=== PATIENT | female | born 1985 | race Caucasian/White ===

== ENCOUNTER 2016-08-23 22:00 | Emergency (ER) | payer MEDICAID ==
[~2016-08-23] VITALS: Ht 167.6 cm; Wt 69.4 kg
--- NOTE | 2016-08-23 22:38 | NUR ---
PT TAKEN TO BED 4
--- NOTE | 2016-08-23 22:45 | NUR ---
PATIENT PRESENTS TO ED WITH LOWER ABD PAIN RADIATING TO HER BACK FOR 3 DAYS, WITH N/V ALL DAY . AND VAG BLEEDING, 6 WEEKS, LMP JULY 09. PT WENT FOR TERMINATION OF YESTERDAY. PT SKIN IS PINK/WARM/DRY; AAOX4 WITH EVEN AND STEADY GAIT; LUNGS CLEAR BL; HR EVEN AND REGULAR; PT DENIES ANY FEVER, CP, SOB, OR COUGH AT THIS TIME; PATIENT STATES PAIN OF 8/10 AT THIS TIME; VSS; PATIENT POSITIONED FOR COMFORT; HOB ELEVATED; BEDRAILS UP X2; BED DOWN. ER MD MADE AWARE OF PT STATUS.
--- NOTE | 2016-08-23 22:50 | NUR ---
Dr. Rubio evaluating patient at bedside.
--- NOTE | 2016-08-23 22:52 | NUR ---
PT TAKEN TO ULTRASOUND
[2016-08-23 22:58] LABS: BASOPHILS # (AUTO) 0.1 K/uL (0.00-0.22); BASOPHILS % (AUTO) 1.1 % (0.0-2.0); EOSINOPHILS # (AUTO) 0.1 K/uL (0-0.4); EOSINOPHILS % (AUTO) 1.2 % (0.0-4.0); HEMATOCRIT 38.8 % (36-48); HEMOGLOBIN 13.2 g/dL (12.0-16.0); LYMPHOCYTES # (AUTO) 1.1 K/uL (2.5-16.5); LYMPHOCYTES % (AUTO) 8.8 % (20.5-51.1); MEAN CORPUSCULAR HEMOGLOBIN 29 pg (27-31); MEAN CORPUSCULAR HGB CONC 34 g/dL (33-37); MEAN CORPUSCULAR VOLUME 86 fL (80-94); MONOCYTES # (AUTO) 0.5 K/uL (0.8-1.0); NEUTROPHILS # (AUTO) 10.7 K/uL (1.8-7.7); NEUTROPHILS % (AUTO) 84.9 % (42.2-75.2); PLATELET COUNT (AUTO) 217 K/uL (140-450); RED BLOOD CELL COUNT(AUTO) 4.53 MIL/uL (4.20-5.40); RED CELL DISTRIBUTION WIDTH 11.7 % (11.6-13.7); WHITE BLOOD COUNT (AUTO) 12.5 K/uL (4.8-10.8)
[2016-08-23 23:03] LABS: BILIRUBIN,URINE 1+ (NEGATIVE); BLOOD, URINE 3+ (NEGATIVE); COLOR,URINE YELLOW (YELLOW); LEUKOCYTE ESTERASE ,URINE NEGATIVE (NEGATIVE); NITRITE, URINE NEGATIVE (NEGATIVE); PH,URINE 5.5 (5.0-9.0); PROTEIN,URINE 1+ (NEGATIVE); UGLUCOSE NEGATIVE (NEGATIVE)
[2016-08-23 23:08] LABS: APPEARANCE,URINE CLOUDY (CLEAR)
[2016-08-23 23:14] LABS: ANION GAP 16.7 (8-16); CALCIUM 9.1 mg/dL (8.5-10.1); CARBON DIOXIDE 24.9 mmol/L (21-32); CREATININE 0.7 mg/dL (0.6-1.3); POTASSIUM 3.6 mmol/L (3.5-5.1)
[2016-08-23 23:18] LABS: ALBUMIN 4.1 g/dL (3.4-5.0); TOTAL BILIRUBIN 0.5 mg/dL (0.0-1.0); TOTAL PROTEIN, SERUM 7.9 g/dL (6.4-8.2)
[2016-08-23 23:20] LABS: BACTERIA,URINE FEW /HPF (None Seen); RBC,URINE TOO NUMEROUS TO COUN /HPF (0-5); SQUAMOUS EPITHELIAL CELL,UR RARE /LPF (0-3 (FEW)); WBC,URINE NONE SEEN /HPF (0-5)
[2016-08-23 23:21] LABS: URINE AMORPHOUS URATE 4+ /HPF (None Seen)
[2016-08-24] MEDS ORDERED: KETOROLAC 60 MG/2 ML VIAL IM ONE (00:10)
[2016-08-24 00:21] VITALS: BP 128/74
== END 2016-08-24 00:21 | disposition home or self-care (01) ==
LOC: MED 22:00
DX: O04.80 (Induced) termination of pregnancy with unspecified complications (principal)
CPT/HCPCS: 36415; 76801; 80053; 81001; 84702; 85025; 86900; 86901; 96372; 99285; J1885

== ENCOUNTER 2016-08-28 21:22 | Day surgery (SDC) | payer MEDICAID ==
[~2016-08-28] VITALS: Ht 165.1 cm; Wt 69.4 kg
[2016-08-28 21:30] VITALS: BP 104/64
--- NOTE | 2016-08-28 22:38 | NUR ---
PT TAKEN TO BED 7
[2016-08-28] MEDS ORDERED: LEVOFLOXACIN 500 MG/D5W PREMIX 100 ML IV ONE (22:40)
--- NOTE | 2016-08-28 23:45 | NUR ---
31Y F BIB SON C/O OF ABD PAIN. NO DISTRESS, PAIN IS 8/10 IN SCALE.
--- NOTE | 2016-08-28 23:49 | NUR ---
Dr. Rubio evaluating patient at bedside.
[2016-08-28] MEDS ORDERED: metroNIDAZOLE 500 MG/NS PREMIX 100 ML IV ONE (23:55)
--- NOTE | 2016-08-29 00:48 | NUR ---
PT RETURN FROM ULTRASOUND
--- NOTE | 2016-08-29 02:03 | NUR ---
Patient will be admitted to care of DR Familia FRANKS. Admited to [facility]. Will go to room 104B. Belongings list completed. Report to [facility].
[2016-08-29 02:08] VITALS: BP 99/56
--- NOTE | 2016-08-29 02:08 | NUR ---
ADMITTED PT FROM ER AWAKE,ALERT AND ORIENTED X4,SPEAKS TURKISH. NO C/O RESPIRATORY DISTRESS. NO FEVER AT THIS TIME. ORIENTED TO SURROUNDINGS, CALL LIGTH WITHIN REACH. IV TO LEFT AC PATENT AND INTACT. INSTRUCTED NOT TO EAT OR DRINK DOCTOR MAY DO THE SURGERY TODAY.
--- NOTE | 2016-08-29 02:10 | NUR ---
PT STATED MILD HAS PAIN TO LOWER ABDOMEN BUT DOES NEED PAIN MED AT THIS TIME, WILL LET NURSE KNOW LATER IF SHE NEEDS IT.
[2016-08-29 04:00] VITALS: BP 94/58
--- NOTE | 2016-08-29 04:00 | NUR ---
TEMPERATURE 99.5 TEMPORAL,NO COMPLAINTS.REINFOCED NPO STATUS.
[2016-08-29 07:12] LABS: BASOPHILS # (AUTO) 0.1 K/uL (0.00-0.22); BASOPHILS % (AUTO) 1.2 % (0.0-2.0); EOSINOPHILS # (AUTO) 0.3 K/uL (0-0.4); EOSINOPHILS % (AUTO) 2.2 % (0.0-4.0); HEMATOCRIT 33.1 % (36-48); HEMOGLOBIN 11.1 g/dL (12.0-16.0); LYMPHOCYTES # (AUTO) 1.2 K/uL (2.5-16.5); LYMPHOCYTES % (AUTO) 10.1 % (20.5-51.1); MEAN CORPUSCULAR HEMOGLOBIN 29 pg (27-31); MEAN CORPUSCULAR HGB CONC 34 g/dL (33-37); MEAN CORPUSCULAR VOLUME 86 fL (80-94); MONOCYTES # (AUTO) 1.5 K/uL (0.8-1.0); MONOCYTES % (AUTO) 12.5 % (1.7-9.3); NEUTROPHILS # (AUTO) 9.1 K/uL (1.8-7.7); PLATELET COUNT (AUTO) 179 K/uL (140-450); RED BLOOD CELL COUNT(AUTO) 3.87 MIL/uL (4.20-5.40); RED CELL DISTRIBUTION WIDTH 11.7 % (11.6-13.7); WHITE BLOOD COUNT (AUTO) 12.2 K/uL (4.8-10.8)
--- NOTE | 2016-08-29 07:15 | NUR ---
DR Familia FRANKS VISITED PATIENT NEW ORDER OK TO DISCHARGE PATIENT AND F/U WITH HIM WITH IN ONE WEEK.
[2016-08-29 08:00] VITALS: BP 121/71
--- NOTE | 2016-08-29 08:00 | NUR ---
RECEIVED REPORT FROM [facility] FOR CONTINUITY OF CARE. PATIENT AWAKE A/OX4 NO S/S OF RESP DISTRESS NOTED ABLE TO MAKE NEEDS KNOWN . AT THE BED SIDE HELPING WITH THE NEEDS . DENIES ANY PAIN .AMBULATE TO BATHROOM STATED VERY MINIMAL BLEEDING. IV SITE RIGHT AC GAUGE 20 INTACT AND PATENT . PLAN OF CARE DISCUSSED WITH THE PATIENT VITALS STABLE WILL CONTINUE TO MONITOR.
--- NOTE | 2016-08-29 10:15 | NUR ---
DISCHARGE INSTRUCTION AND PRESCRIPTION GIVEN VERBALIZED UNDERSTANDING , ALL PAPER WORK SIGNED BY THE PATIENT. D/C PATIENT HOME ACCOMPANY BY HER , STABLE CONDITION UPON DISCHARGE.
[2016-08-29] MEDS ORDERED: CYT100 PO ×2 (10:17→10:24)
[2016-08-29] MEDS ORDERED: AMPI500C49 PO ×2 (10:18→10:24)
== END 2016-08-29 10:15 | disposition home or self-care (01) ==
LOC: MED 21:22 → MTU 08-29 01:38 → MED 08-29 01:38
PROVIDERS: ATTEND Obstetrics & Gynecology
DX: O03.0 Genital tract and pelvic infection following incomplete spontaneous abortion (principal); N76.0 Acute vaginitis
CPT/HCPCS: 36415; 76830; 84702; 85025; 87070; 87081; 87210; J1956; J3490; Q0092

== ENCOUNTER 2018-01-26 12:55 | Emergency (ER) | payer MEDICAID ==
[~2018-01-26] VITALS: Ht 157.5 cm; Wt 67.6 kg
[~2018-01-26 12:55] MED LIST: CYT100 PO
[2018-01-26 13:00] VITALS: BP 103/73
[2018-01-26] MEDS ORDERED: ACETAMINOPHEN EXTRA STRENGTH 500 MG TAB PO ONE (13:15)
[2018-01-26 13:47] LABS: BASOPHILS # (AUTO) 0.1 K/uL (0.00-0.22); BASOPHILS % (AUTO) 0.7 % (0.0-2.0); EOSINOPHILS # (AUTO) 0.1 K/uL (0-0.4); EOSINOPHILS % (AUTO) 1.7 % (0.0-4.0); HEMATOCRIT 35.9 % (36-48); LYMPHOCYTES % (AUTO) 23.2 % (20.5-51.1); MEAN CORPUSCULAR HEMOGLOBIN 29 pg (27-31); MEAN CORPUSCULAR HGB CONC 33 g/dL (33-37); MEAN CORPUSCULAR VOLUME 86.7 fL (80-94); MONOCYTES # (AUTO) 0.8 K/uL (0.8-1.0); MONOCYTES % (AUTO) 8.9 % (1.7-9.3); NEUTROPHILS # (AUTO) 5.7 K/uL (1.8-7.7); NEUTROPHILS % (AUTO) 65.5 % (42.2-75.2); PLATELET COUNT (AUTO) 206 K/uL (140-450); RED BLOOD CELL COUNT(AUTO) 4.15 MIL/uL (4.20-5.40); RED CELL DISTRIBUTION WIDTH 12.9 % (11.6-13.7); WHITE BLOOD COUNT (AUTO) 8.7 K/uL (4.8-10.8)
[2018-01-26 13:51] LABS: APPEARANCE,URINE CLEAR (CLEAR); BILIRUBIN,URINE NEGATIVE (NEGATIVE); BLOOD, URINE SMALL (NEGATIVE); COLOR,URINE YELLOW (YELLOW); LEUKOCYTE ESTERASE ,URINE NEGATIVE (NEGATIVE); NITRITE, URINE NEGATIVE (NEGATIVE); PH,URINE 6.5 (5.0-9.0); UGLUCOSE NEGATIVE (NEGATIVE)
[2018-01-26 14:06] LABS: RBC,URINE 0-5 (RARE) /HPF (0-5); WBC,URINE 0-5 (RARE) /HPF (0-5)
[2018-01-26] MEDS ORDERED: cefTRIAXone 1,000 MG in LIDOCAINE MPF 1% - 5 mL VIAL 2.1 ML IM ONE (16:10)
[2018-01-26 16:45] VITALS: BP 128/75
== END 2018-01-26 16:45 | disposition home or self-care (01) ==
LOC: MED 12:55
DX: O20.0 Threatened abortion (principal); O98.811 Other maternal infectious and parasitic diseases complicating pregnancy, first trimester; R82.71 Bacteriuria; Z3A.08 8 weeks gestation of pregnancy; Z79.899 Other long term (current) drug therapy
CPT/HCPCS: 36415; 76817; 81001; 81025; 84702; 85025; 86900; 86901; 96372; 99284; J0696; J2001; Q0092; 81002

== ENCOUNTER 2018-08-23 13:36 | Emergency (ER) | payer MEDICAID ==
[~2018-08-23] VITALS: Ht 162.6 cm; Wt 70.8 kg
[2018-08-23 14:00] VITALS: BP 113/61
--- NOTE | 2018-08-23 14:06 | NUR ---
VSS. WAIT IN LOBBY
--- NOTE | 2018-08-23 14:45 | NUR ---
pt ambulated to er bed 02
--- NOTE | 2018-08-23 14:56 | NUR ---
C/O RIGHT LOWER ABDOMINAL PAIN & VAGINAL BLEEDING X 2 WEEKS MED HX:DENIES
[2018-08-23] MEDS ORDERED: NACL 0.9% 1,000 ML IV ONE (15:50)
[2018-08-23 16:13] LABS: BASOPHILS # (AUTO) 0.1 K/uL (0.00-0.22); EOSINOPHILS # (AUTO) 0.2 K/uL (0-0.4); EOSINOPHILS % (AUTO) 2.7 % (0.0-4.0); HEMATOCRIT 37.3 % (36-48); HEMOGLOBIN 12.4 g/dL (12.0-16.0); LYMPHOCYTES # (AUTO) 2.5 K/uL (2.5-16.5); LYMPHOCYTES % (AUTO) 36.9 % (20.5-51.1); MEAN CORPUSCULAR HEMOGLOBIN 29 pg (27-31); MEAN CORPUSCULAR HGB CONC 33 g/dL (33-37); MONOCYTES # (AUTO) 0.6 K/uL (0.8-1.0); MONOCYTES % (AUTO) 8.4 % (1.7-9.3); NEUTROPHILS # (AUTO) 3.4 K/uL (1.8-7.7); PLATELET COUNT (AUTO) 233 K/uL (140-450); RED BLOOD CELL COUNT(AUTO) 4.23 MIL/uL (4.20-5.40); RED CELL DISTRIBUTION WIDTH 12.7 % (11.6-13.7); WHITE BLOOD COUNT (AUTO) 6.7 K/uL (4.8-10.8)
[2018-08-23 16:32] LABS: PROTHROMBIN TIME 9.7 secs (10.8-13.4)
[2018-08-23 18:55] VITALS: BP 110/82
== END 2018-08-23 18:56 | disposition home or self-care (01) ==
LOC: MED 13:36
DX: N93.8 Other specified abnormal uterine and vaginal bleeding (principal); R42 Dizziness and giddiness; Z79.899 Other long term (current) drug therapy
CPT/HCPCS: 36415; 76830; 81002; 81025; 85025; 85610; 85730; 86900; 86901; 96360; 99284; J7030; Q0092

== ENCOUNTER 2021-11-18 22:04 | Emergency (ER) | payer MEDICAID ==
[~2021-11-18] VITALS: Ht 167.6 cm; Wt 70.3 kg
[2021-11-18 23:11] VITALS: BP 124/77
--- NOTE | 2021-11-18 23:18 | NUR ---
TO LOBBY FOLLOWING TRIAGE
--- NOTE | 2021-11-19 02:43 | NUR ---
PT TO BED #1
--- NOTE | 2021-11-19 02:45 | NUR ---
Received pt AAOx4, CC- Bleeding x2 weeks. Pt is by each time, on control Deprovera- Desires not to have anymore children. Seen by
[2021-11-19] MEDS ORDERED: ACETAMINOPHEN EXTRA STRENGTH 500 MG TAB PO ONE (03:00)
[2021-11-19] MEDS ORDERED: IBUPROFEN 600 MG TAB PO ONE (03:00)
[2021-11-19 03:12] LABS: BASOPHILS # (AUTO) 0.1 K/uL (0.00-0.22); BASOPHILS % (AUTO) 1.2 % (0.0-2.0); EOSINOPHILS # (AUTO) 0.2 K/uL (0-0.4); EOSINOPHILS % (AUTO) 2.5 % (0.0-4.0); HEMATOCRIT 33.1 % (36-48); LYMPHOCYTES % (AUTO) 37.7 % (20.5-51.1); MEAN CORPUSCULAR HEMOGLOBIN 27 pg (27-31); MEAN CORPUSCULAR HGB CONC 33 g/dL (33-37); MEAN CORPUSCULAR VOLUME 82.2 fL (80-94); MONOCYTES # (AUTO) 0.6 K/uL (0.8-1.0); MONOCYTES % (AUTO) 7.6 % (1.7-9.3); NEUTROPHILS # (AUTO) 4.1 K/uL (1.8-7.7); PLATELET COUNT (AUTO) 228 K/uL (140-450); RED BLOOD CELL COUNT(AUTO) 4.03 MIL/uL (4.20-5.40); RED CELL DISTRIBUTION WIDTH 14.2 % (11.6-13.7); WHITE BLOOD COUNT (AUTO) 7.9 K/uL (4.8-10.8)
--- NOTE | 2021-11-19 03:30 | NUR ---
Abd US done at [facility].
[2021-11-19 03:55] LABS: ALBUMIN 3.6 g/dL (3.4-5.0); ANION GAP 12.5 (8-16); CARBON DIOXIDE 25.1 mmol/L (21-32); CREATININE 0.7 mg/dL (0.6-1.3); POTASSIUM 3.6 mmol/L (3.5-5.1); TOTAL BILIRUBIN 0.4 mg/dL (0.0-1.0)
[2021-11-19 03:59] LABS: APPEARANCE,URINE CLEAR (CLEAR); BILIRUBIN,URINE NEGATIVE (NEGATIVE); BLOOD, URINE 3+ (NEGATIVE); COLOR,URINE YELLOW (YELLOW); LEUKOCYTE ESTERASE ,URINE 1+ (NEGATIVE); NITRITE, URINE POSITIVE (NEGATIVE); UGLUCOSE NEGATIVE (NEGATIVE)
[2021-11-19 04:23] LABS: RBC,URINE 11-20 (MOD) /HPF (0-5); WBC,URINE 0-5 /HPF (0-5)
--- NOTE | 2021-11-19 05:00 | NUR ---
Seen by . Pending dispo
[2021-11-19] MEDS ORDERED: MEDR10TA PO (06:44)
[2021-11-19] MEDS ORDERED: IBUP-2213 PO (06:44)
[2021-11-19 07:15] VITALS: BP 118/72
--- NOTE | 2021-11-19 07:15 | NUR ---
Patient discharged with v/s stable. Written and verbal after care instructions given and explained. Patient alert, oriented and verbalized understanding of instructions. Ambulatory with steady gait. All questions addressed prior to discharge. ID band removed. Patient advised to follow up with PMD / OBGYN. Rx of ibuprofen and provera given. Patient educated on indication of medication including possible reaction and side effects. Opportunity to ask questions provided and answered.
== END 2021-11-19 07:13 | disposition home or self-care (01) ==
LOC: MED 22:04
DX: N93.8 Other specified abnormal uterine and vaginal bleeding (principal); Z98.890 Other specified postprocedural states
CPT/HCPCS: 36415; 76856; 80053; 81001; 81025; 85025; 87086; 99284; Q0092

== ENCOUNTER 2022-04-11 16:53 | Emergency (ER) | payer MEDICAID ==
[~2022-04-11] VITALS: Ht 162.6 cm; Wt 72.1 kg
[~2022-04-11 16:53] MED LIST changes: +IBUP-2213 PO; +MEDR10TA PO
[2022-04-11 16:59] VITALS: BP 123/78
[2022-04-11 17:49] LABS: BASOPHILS # (AUTO) 0.1 K/uL (0.00-0.22); EOSINOPHILS # (AUTO) 0.2 K/uL (0-0.4); EOSINOPHILS % (AUTO) 2.4 % (0.0-4.0); HEMATOCRIT 37.4 % (36-48); HEMOGLOBIN 12.4 g/dL (12.0-16.0); LYMPHOCYTES # (AUTO) 2.9 K/uL (2.5-16.5); LYMPHOCYTES % (AUTO) 36.4 % (20.5-51.1); MEAN CORPUSCULAR HEMOGLOBIN 27 pg (27-31); MEAN CORPUSCULAR HGB CONC 33 g/dL (33-37); MEAN CORPUSCULAR VOLUME 80.9 fL (80-94); MONOCYTES # (AUTO) 0.6 K/uL (0.8-1.0); MONOCYTES % (AUTO) 7.6 % (1.7-9.3); NEUTROPHILS # (AUTO) 4.2 K/uL (1.8-7.7); NEUTROPHILS % (AUTO) 52.6 % (42.2-75.2); PLATELET COUNT (AUTO) 253 K/uL (140-450); RED BLOOD CELL COUNT(AUTO) 4.62 MIL/uL (4.20-5.40); RED CELL DISTRIBUTION WIDTH 15.3 % (11.6-13.7)
[2022-04-11 18:25] LABS: BILIRUBIN,URINE NEGATIVE (NEGATIVE); BLOOD, URINE LARGE (NEGATIVE); COLOR,URINE YELLOW (YELLOW); LEUKOCYTE ESTERASE ,URINE NEGATIVE (NEGATIVE); NITRITE, URINE NEGATIVE (NEGATIVE); UGLUCOSE NEGATIVE (NEGATIVE)
[2022-04-11 18:47] LABS: APPEARANCE,URINE CLOUDY (CLEAR)
[2022-04-11 18:59] LABS: RBC,URINE >100 /HPF (0-5); WBC,URINE NONE SEEN /HPF (0-5)
--- NOTE | 2022-04-11 19:28 | NUR ---
PT TO BED 12.
[2022-04-11] MEDS ORDERED: IBUP-2213 PO (19:51)
--- NOTE | 2022-04-11 20:08 | NUR ---
Patient resting in bed, A/Ox4, chest rise and fall symmetrical, no c/o pain or s/s of distress. Addendum: 04/11/22 at 2020 by [email or web address] Patient resting in bed, A/Ox4, chest rise and fall symmetrical, no s/s of distress.
[2022-04-11] MEDS ORDERED: KETOROLAC 30 MG/ML VIAL IM ONE (20:15)
[2022-04-11] MEDS ORDERED: KETOROLAC 30 MG/ML VIAL ONE (20:18)
[2022-04-11 20:19] VITALS: BP 122/85
== END 2022-04-11 20:20 | disposition home or self-care (01) ==
LOC: MED 16:53
DX: N93.9 Abnormal uterine and vaginal bleeding, unspecified (principal); N83.202 Unspecified ovarian cyst, left side; D25.9 Leiomyoma of uterus, unspecified; Z79.899 Other long term (current) drug therapy; Z79.1 Long term (current) use of non-steroidal anti-inflammatories (NSAID)
CPT/HCPCS: 36415; 76830; 81001; 81025; 85025; 96372; 99285; J1885; Q0092

== ENCOUNTER 2022-04-13 19:49 | Emergency (ER) | payer MEDICAID ==
[~2022-04-13] VITALS: Ht 162.6 cm; Wt 72.1 kg
--- NOTE | 2022-04-13 20:00 | NUR ---
PT TAKEN TO BED 6
[2022-04-13 20:02] VITALS: BP 143/97
--- NOTE | 2022-04-13 20:05 | NUR ---
UA collected and sent to lab
--- NOTE | 2022-04-13 20:07 | NUR ---
37 Y/O F presents with vaginal bleeding with 0/10 pain, for fibroids previously diagnoised. pt stated she has not seen a doctor for them yet. pt has been bleeding on and off x1 month. pt denies any blood thinners, A&Ox4, skin intact, PMH-fibroids NKA
[2022-04-13 20:09] VITALS: BP 143/97
--- NOTE | 2022-04-13 20:12 | NUR ---
Dr. Paula examining patient.
--- NOTE | 2022-04-13 20:19 | NUR ---
Blood for labwork drawn by geoscience professor. Patient tolerated well.
--- NOTE | 2022-04-13 20:20 | NUR ---
lab at bedside
[2022-04-13 20:21] LABS: APPEARANCE,URINE CLEAR (CLEAR); BILIRUBIN,URINE NEGATIVE (NEGATIVE); BLOOD, URINE LARGE (NEGATIVE); COLOR,URINE YELLOW (YELLOW); LEUKOCYTE ESTERASE ,URINE NEGATIVE (NEGATIVE); NITRITE, URINE POSITIVE (NEGATIVE); PH,URINE 6.5 (5.0-9.0); UGLUCOSE NEGATIVE (NEGATIVE)
[2022-04-13 20:33] LABS: BASOPHILS # (AUTO) 0.1 K/uL (0.00-0.22); BASOPHILS % (AUTO) 1.2 % (0.0-2.0); EOSINOPHILS # (AUTO) 0.2 K/uL (0-0.4); EOSINOPHILS % (AUTO) 2.3 % (0.0-4.0); HEMATOCRIT 36.3 % (36-48); HEMOGLOBIN 12.1 g/dL (12.0-16.0); LYMPHOCYTES % (AUTO) 40.4 % (20.5-51.1); MEAN CORPUSCULAR HEMOGLOBIN 27 pg (27-31); MEAN CORPUSCULAR HGB CONC 33 g/dL (33-37); MEAN CORPUSCULAR VOLUME 80.7 fL (80-94); MONOCYTES # (AUTO) 0.7 K/uL (0.8-1.0); MONOCYTES % (AUTO) 9.1 % (1.7-9.3); NEUTROPHILS # (AUTO) 3.4 K/uL (1.8-7.7); PLATELET COUNT (AUTO) 272 K/uL (140-450); RED CELL DISTRIBUTION WIDTH 15.1 % (11.6-13.7); WHITE BLOOD COUNT (AUTO) 7.3 K/uL (4.8-10.8)
--- NOTE | 2022-04-13 20:40 | NUR ---
Dr. Paula at bedside
[2022-04-13 20:42] LABS: RBC,URINE 20-50 /HPF (0-5)
[2022-04-13 20:43] LABS: TRICHOMONAS,URINE None Seen /HPF (None Seen); YEAST,URINE None Seen /HPF (None Seen)
[2022-04-13] MEDS ORDERED: MEDR10TA PO (20:48)
[2022-04-13] MEDS ORDERED: NITR100C7 PO (20:50)
--- NOTE | 2022-04-13 20:55 | NUR ---
Patient discharged with v/s stable. Written and verbal after care instructions given and explained. Patient alert, oriented and verbalized understanding of instructions. Ambulatory with steady gait. All questions addressed prior to discharge. ID band removed. Patient advised to follow up with PMD. Rx of provera and Macrobid given. Opportunity to ask questions provided and answered.
== END 2022-04-13 20:55 | disposition home or self-care (01) ==
LOC: MED 19:49
DX: D25.9 Leiomyoma of uterus, unspecified (principal); N39.0 Urinary tract infection, site not specified; R42 Dizziness and giddiness; R53.83 Other fatigue; Z79.899 Other long term (current) drug therapy
CPT/HCPCS: 36415; 81001; 81025; 85025; 87086; 99283

== ENCOUNTER 2022-06-24 18:39 | Emergency (ER) | payer MEDICAID ==
[~2022-06-24] VITALS: Ht 157.5 cm; Wt 68.9 kg
[~2022-06-24 18:39] MED LIST changes: +NITR100C7 PO
[2022-06-24 18:44] VITALS: BP 126/85
--- NOTE | 2022-06-24 19:30 | NUR ---
MD Du at bedside examining pt.
[2022-06-24] MEDS ORDERED: KETOROLAC 60 MG/2 ML VIAL IM ONE (19:40)
[2022-06-24] MEDS ORDERED: IBUP-2213 PO (19:40)
--- NOTE | 2022-06-24 19:59 | NUR ---
Pt medicated as ordered; tolerated well.
[2022-06-24 20:04] VITALS: BP 119/74
--- NOTE | 2022-06-24 20:04 | NUR ---
Patient discharged with v/s stable. Written and verbal after care instructions given and explained. Patient alert, oriented and verbalized understanding of instructions. All questions addressed prior to discharge. ID band removed. Patient advised to follow up with PMD. Rx of Ibuprofen sent to preferred pharmacy. Patient educated on indication of medication including possible reaction and side effects. Opportunity to ask questions provided and answered.
== END 2022-06-24 20:04 | disposition home or self-care (01) ==
LOC: MED 18:39
DX: R07.89 Other chest pain (principal); Z79.899 Other long term (current) drug therapy; Z98.890 Other specified postprocedural states
CPT/HCPCS: 93005; 96372; 99283; J1885

== ENCOUNTER 2023-01-06 12:52 | Emergency (ER) | payer MEDICAID ==
[~2023-01-06] VITALS: Ht 162.1 cm; Wt 72.1 kg
[~2023-01-06 12:52] MED LIST changes: +IBUP-2218 PO
[2023-01-06 13:53] VITALS: BP 121/80; PULSE 85; RESP 18; TEMP 98.5; O2SAT 100
[2023-01-06] MEDS ORDERED: KETOROLAC 60 MG/2 ML VIAL IM ONE (21:50)
[2023-01-06] MEDS ORDERED: IBUP-2213 PO (22:05)
[2023-01-06 22:19] VITALS: BP 124/75; PULSE 85; RESP 18; TEMP 98.5; O2SAT 99
== END 2023-01-06 22:18 | disposition home or self-care (01) ==
LOC: MED 12:52
DX: R07.89 Other chest pain (principal); H57.12 Ocular pain, left eye; Z79.899 Other long term (current) drug therapy
CPT/HCPCS: 81025; 93005; 96372; 99283; J1885

== ENCOUNTER 2023-11-03 19:32 | Emergency (ER) | payer MEDICAID ==
[~2023-11-03] VITALS: Ht 165.1 cm; Wt 78.5 kg
[~2023-11-03 19:32] MED LIST changes: -CYT100 PO; +MISO100T2 PO
[2023-11-03 19:52] VITALS: BP 117/84; PULSE 77; RESP 16; TEMP 97.8; O2SAT 98
[2023-11-03] MEDS: KETOROLAC 30 MG/ML VIAL IM ONE (20:50)
[2023-11-03] MEDS: ACETAMINOPHEN EXTRA STRENGTH 500 MG TAB PO ONE (20:50)
[2023-11-03 21:15] LABS: BASOPHILS # (AUTO) 0.1 K/uL (0.00-0.22); BASOPHILS % (AUTO) 0.7 % (0.0-2.0); EOSINOPHILS # (AUTO) 0.3 K/uL (0-0.4); EOSINOPHILS % (AUTO) 2.4 % (0.0-4.0); HEMOGLOBIN 12.9 g/dL (12.0-16.0); LYMPHOCYTES # (AUTO) 2.8 K/uL (2.5-16.5); LYMPHOCYTES % (AUTO) 21.3 % (20.5-51.1); MEAN CORPUSCULAR HEMOGLOBIN 29 pg (27-31); MEAN CORPUSCULAR HGB CONC 33 g/dL (33-37); MEAN CORPUSCULAR VOLUME 88.3 fL (80-94); MONOCYTES % (AUTO) 8.1 % (1.7-9.3); NEUTROPHILS # (AUTO) 8.8 K/uL (1.8-7.7); NEUTROPHILS % (AUTO) 67.5 % (42.2-75.2); PLATELET COUNT (AUTO) 225 K/uL (140-450); RED BLOOD CELL COUNT(AUTO) 4.42 MIL/uL (4.20-5.40); RED CELL DISTRIBUTION WIDTH 13.1 % (11.6-13.7)
[2023-11-03 21:24] LABS: ANION GAP 12.5 (8-16); CALCIUM 8.8 mg/dL (8.5-10.1); CARBON DIOXIDE 26.4 mmol/L (21-32); CREATININE 0.6 mg/dL (0.6-1.3); POTASSIUM 3.9 mmol/L (3.5-5.1)
[2023-11-03 21:29] LABS: ALBUMIN 3.5 g/dL (3.4-5.0); TOTAL BILIRUBIN 0.3 mg/dL (0.0-1.0); TOTAL PROTEIN, SERUM 7.1 g/dL (6.4-8.2)
[2023-11-03 21:43] LABS: INR 0.96 (0.8-1.2); PARTIAL THROMBOPLASTIN TIME 24.7 secs (22-35.6); PROTHROMBIN TIME 10.1 secs (10.8-13.4)
[2023-11-03] MEDS: HYDROcodone/APAP 5/325 MG 1 TAB TAB PO ONE (21:54)
[2023-11-03 21:58] LABS: BILIRUBIN,URINE NEGATIVE (NEGATIVE); BLOOD, URINE 3+ (NEGATIVE); COLOR,URINE YELLOW (YELLOW); LEUKOCYTE ESTERASE ,URINE 2+ (NEGATIVE); NITRITE, URINE NEGATIVE (NEGATIVE); PH,URINE 6.5 (5.0-9.0); PROTEIN,URINE 1+ (NEGATIVE); UGLUCOSE NEGATIVE (NEGATIVE); UROBILINOGEN,URINE 0.2 EU/dL (0.2 - 1)
[2023-11-03 22:05] LABS: APPEARANCE,URINE SLIGHTLY HAZY (CLEAR)
[2023-11-03 22:06] LABS: BACTERIA,URINE 2+ /HPF (None Seen); MUCUS,URINE 2+ /LPF (None Seen)
[2023-11-03] MEDS ORDERED: AMOX1TAB8 PO (22:53)
[2023-11-03] MEDS ORDERED: ACET-8905 PO (22:53)
[2023-11-03] MEDS ORDERED: MEDR10TA PO (22:53)
[2023-11-03] MEDS ORDERED: IBUP-2213 PO (22:53)
[2023-11-03] MEDS ORDERED: cefTRIAXone 1,000 MG VIAL ONE (22:55)
[2023-11-03] MEDS ORDERED: LIDOCAINE MPF 1% 5 ML ONE (22:56)
[2023-11-03] MEDS: cefTRIAXone 1,000 MG in LIDOCAINE MPF 1% 2.1 ML IM ONE (23:00)
[2023-11-03 23:04] VITALS: BP 134/84; PULSE 84; RESP 16; TEMP 97.8; O2SAT 98
== END 2023-11-03 23:04 | disposition home or self-care (01) ==
LOC: MED 19:32
DX: N39.0 Urinary tract infection, site not specified (principal); N93.8 Other specified abnormal uterine and vaginal bleeding; N92.0 Excessive and frequent menstruation with regular cycle; Z79.899 Other long term (current) drug therapy
CPT/HCPCS: 36415; 80053; 81001; 81025; 85025; 85610; 85730; 87086; 96372; 99284; J0696; J1885; J2001